=== PATIENT | male | born 1995 | race Hispanic/Latino ===

== ENCOUNTER 2023-11-08 16:54 | Inpatient (IN) | payer SELFPAY ==
[2023-11-08] MEDS ORDERED: ONDANSETRON 4 MG/2 ML VIAL ONE (17:24)
[2023-11-08] MEDS ORDERED: NA CHLORIDE 0.9% 1,000 ML ONE (17:24)
[2023-11-08 17:54] LABS: Albumin 4.7 g/dL (3.4-5.0); Anion Gap 10.9 mEq/L (5.0-15.0); Bilirubin Total 1.6 mg/dL (0.2-1.0); Globulin 4.6 g/dL (2.3-3.5); Potassium 3.9 mEq/L (3.5-5.1); Protein, Total 9.3 g/dL (6.4-8.2)
[2023-11-08 18:01] LABS: Absolute Basophils 0.1 K/uL (0-0.5); Absolute Eosinophils 0.1 K/uL (0-0.5); Absolute Lymphocytes (CBC) 2.6 K/uL (0.7-4.9); Absolute Monocytes 0.8 K/uL (0.1-1.3); Absolute Neutrophil 7.9 K/uL (1.8-8.0); Basophils % 0.7 % (0-1.3); Eosinophils % 0.8 % (0-4.4); Hematocrit 54.6 % (39.6-49.0); Hemoglobin 18.2 g/dL (13.6-17.9); Lymphocytes % 22.8 % (15.3-44.8); MCH 27.5 pg (27.0-35.0); MCHC 33.4 g/dL (32.0-36.0); MCV 82.3 fL (80-100); MPV 8.9 fL (7.6-11.3); Monocytes % 7.2 % (3.3-12.3); Neutrophils % 68.5 % (41.7-73.7); Nucleated RBC Absolute Count 0.5 (0-0); Nucleated Red Blood Cells % 3.9 % (0-0); Platelets 340 thou/uL (152-406); RBC Red Blood Cell Count 6.64 M/uL (4.33-5.43); Red Cell Distribution Width 13.3 % (12.1-15.2)
--- NOTE | 2023-11-08 18:47 | RAD REPORT ---
EXAM DESCRIPTION: CTAbdomen Pelvis W Contrast - 11/08/2023 6:39 pm CLINICAL HISTORY: Abdominal pain. ABD PAIN COMPARISON: No comparisons TECHNIQUE: Biphasic CT imaging of the abdomen and pelvis was performed with 100 ml non-ionic IV cont rast. All CT scans are performed using dose optimization technique as appropriate and may include automated exposure control or mA/KV adjustment according to patient size. FINDINGS: The lung bases are clear. The liver is diffusely fatty. 21 mm lesion in the left lobe anteriorly likely hemangioma. No worrisom e liver lesion. No intra or extrahepatic biliary tree dilatation. Spleen, pancreas, adrenal glands an d kidneys are within normal limits. No bowel obstruction, free air, free fluid or abscess. The tip of the appendix is hazy in appearance and measures 8 mm. This is equivocal for mild/early appendicitis. No evidence of significant lympha denopathy. No suspicious bony findings. IMPRESSION: Tip of the appendix is hazy which is questionable for early appendicitis. Please correla te with right lower quadrant symptomology and appropriate lab studies. 21 mm left hepatic lobe benign hemangioma.
--- NOTE | 2023-11-08 19:04 | ER ---
Nurse's Notes [facility] Name: Riley Naylor Age: 28 yrs Sex: Male : 1995 Arrival Date: 11/08/2023 Time: 16:54 Bed 6 Private MD: Diagnosis: Abdominal pain, possible appendicitis Presentation: 11/07 17:05 Chief complaint: Patient states: Abdominal pain for 12 days, feels worse after eating. ll1 No fevers. Slight nausea. Coronavirus screen: Client denies travel out of the [place] in the last 14 days. At this time, the client does not indicate any symptoms associated with coronavirus-19. Ebola Screen: Patient denies travel to an Ebola-affected area in the 21 days before illness onset. Initial Sepsis Screen: Does the patient meet any 2 criteria? No. Patient's initial sepsis screen is negative. Does the patient have a suspected source of infection? No. Patient's initial sepsis screen is negative. Risk Assessment: Do you want to hurt yourself or someone else? Patient reports no desire to harm self or others. Onset of symptoms was October 27, 2023. 17:05 Method Of Arrival: Ambulatory ll1 17:05 Acuity: CATALINO 3 ll1 Triage Assessment: 17:07 General: Appears uncomfortable, Behavior is calm, cooperative, appropriate for age. ll1 Pain: Complains of pain in abdomen Pain currently is 5 out of 10 on a pain scale. Quality of pain is described as aching, crampy. Neuro: No deficits noted. Cardiovascular: No deficits noted. GI: Reports lower abdominal pain, upper abdominal pain, nausea. Historical: - Allergies: 17:04 PENICILLINS; ll1 - Home Meds: 17:04 None [Active]; ll1 - PMHx: 17:04 None; ll1 - PSHx: 17:04 None; ll1 - Immunization history:: Adult Immunizations up to date. - Social history:: Smoking status: Patient denies any tobacco usage or history of. Screenin:46 [facility] ED Fall Risk Assessment (Adult) History of falling in the last 3 months, ko1 including since admission No falls in past 3 months (0 pts) Confusion or Disorientation No (0 pts) Intoxicated or Sedated No (0 pts) Impaired Gait No (0 pts) Mobility Assist Device Used No (0 pt) Altered Elimination No (0 pt) Score/Fall Risk Level 0 - 2 = Low Risk Oriented to surroundings, Maintained a safe environment, Educated pt \\T\\ family on fall prevention, incl call for assistance when getting out of bed, Assessed \\T\\ reinforced patient's understanding of fall precautions, Provided non-skid footwear, Hourly rounding (assess needs \\T\\ fall precautionary measures) done, Used ambulatory aids as needed (educated on \\T\\ assisted with), Used gait belt as appropriate. Abuse screen: Denies threats or abuse. Denies injuries from another. Nutritional screening: No deficits noted. Tuberculosis screening: No symptoms or risk factors identified. Assessment: 17:46 General: Appears in no apparent distress. Behavior is calm, cooperative, appropriate ko1 for age. Pain: Complains of pain in abdomen. Neuro: No deficits noted. Cardiovascular: No deficits noted. Respiratory: No deficits noted. GI: Reports upper abdominal pain, nausea. : No deficits noted. EENT: No deficits noted. Derm: No deficits noted. Musculoskeletal: No deficits noted. 19:09 Reassessment: Patient appears in no apparent distress at this time. Patient and/or bm8 family updated on plan of care and expected duration. Pain level reassessed. Patient is alert, oriented x 3, equal unlabored respirations, skin warm/dry/pink. Patient states feeling better. Patient states symptoms have improved. received report from lona Prieto. assuming care of pt at this time.. General: Appears in no apparent distress. comfortable, Behavior is calm, cooperative, appropriate for age. Pain: Complains of pain in umbilical area Pain does not radiate. Pain currently is 1 out of 10 on a pain scale. Quality of pain is described as "uncomfortable" Pain began 2-3 days ago. Is continuous, Alleviated by medications. Neuro: No deficits noted. Level of Consciousness is awake, alert, obeys commands, Oriented to person, place, time, Manager Relationship are equal bilaterally Moves all extremities. Full function Gait is steady. Cardiovascular: No deficits noted. Capillary refill < 3 seconds Patient's skin is warm and dry. Respiratory: No deficits noted. Airway is patent Respiratory effort is even, unlabored, Respiratory pattern is regular, symmetrical. GI: Abdomen is flat, Bowel sounds present X 4 quads. Abd is soft Abdomen is tender to palpation in umbilical area and suprapubic area Abdomen has rebound tenderness. : No deficits noted. No signs and/or symptoms were reported regarding the genitourinary system. EENT: No deficits noted. No signs and/or symptoms were reported regarding the EENT system. Derm: No deficits noted. No signs and/or symptoms reported regarding the dermatologic system. Musculoskeletal: No deficits noted. No signs and/or symptoms reported regarding the musculoskeletal system. 20:49 Reassessment: Patient appears in no apparent distress at this time. No changes from bm8 previously documented assessment. Patient and/or family updated on plan of care and expected duration. Pain level reassessed. Patient is alert, oriented x 3, equal unlabored respirations, skin warm/dry/pink. Vital Signs: 17:05 BP 146 / 84; Pulse 100; Resp 18; Temp 97.8; Pulse Ox 100% ; Weight 79 kg; Height 6 ft. ll1 3 in. ; Pain 5/10; 17:46 BP 121 / 85; Pulse 74; Resp 15; Pulse Ox 98% ; ko1 18:36 BP 114 / 77; Pulse 71; Resp 15; Pulse Ox 99% ; ko1 19:09 BP 127 / 84; Pulse 74; Resp 18; Temp 97.8; Pulse Ox 100% on R/A; Pain 1/10; bm8 20:44 BP 121 / 80; Pulse 70; Resp 17; Temp 97.8; Pulse Ox 100% on R/A; Pain 1/10; bm8 17:05 Body Mass Index 21.77 (79.00 kg, 190.5 cm) ll1 17:05 Pain Scale: Adult ll1 19:09 Pain Scale: Adult bm8 20:44 Pain Scale: Adult bm8 ED Course: 16:57 Patient arrived in ED. ae5 16:58 Chris Ta MD is Attending Physician. sp3 17:04 Arm band placed on. ll1 17:06 Triage completed. ll1 17:12 Patient placed in an exam room, on a stretcher. hb 17:17 Sylwia Sherwood, LONA is Primary Nurse. ko1 17:46 Patient has correct armband on for positive identification. Allergy band placed. Bed in ko1 low position. Call light in reach. Side rails up X 1. Client placed on continuous cardiac and pulse oximetry monitoring. NIBP monitoring applied. child life therapist on. Door closed. Noise minimized. Lights dimmed. Warm blanket given. 17:46 No provider procedures requiring assistance completed. Inserted saline lock: 20 gauge ko1 in right antecubital area, using aseptic technique. Blood collected. 18:41 CT Abd/Pelvis - IV Contrast Only In Process Unspecified. EDMS 19:03 Nanci Lopez MD is Hospitalizing Provider. sp3 19:09 Pulse ox on. NIBP on. Door closed. Noise minimized. Lights dimmed. Warm blanket given. bm8 19:09 Urine collected: clean catch specimen, clear. Patient maintains SpO2 saturation greater bm8 than 95% on room air. 20:07 Primary Nurse role handed off by Sylwia Sherwood RN 20:44 Raffi Berry RN is Primary Nurse. bm8 20:49 Provided Education on: NEED FOR ADMISSION. bm8 20:49 Patient admitted, IV remains in place. bm8 Administered Medications: 17:32 Drug: NS 0.9% IV 1000 ml IV at 1 bolus Per protocol; 1000 mL bolus Route: IV; Rate: 1 ko1 bolus; Site: right antecubital; 19:28 Follow up: IV Status: Completed infusion; IV Intake: 1000ml bm8 17:32 Drug: Ondansetron IVP 4 mg IVP once; over 2 minutes Route: IVP; Site: right antecubital;ko1 21:11 Follow up: Response: No adverse reaction bm8 Medication: 17:46 VIS not applicable for this client. ko1 Intake: 19:28 IV: 1000ml; Total: 1000ml. bm8 Outcome: 19:03 Decision to Hospitalize by Provider. sp3 20:49 Admitted to Tele accompanied by nurse, via wheelchair, room 423, with chart, Report bm8 called to LONA RIDDLE 20:49 Condition: stable 20:49 Instructed on the need for admit, 21:32 Patient left the ED. bm8 Signatures: Dispatcher [employer] EDMD Karine Garvey, Ju Falcon RN, RN RN ll1 Ela Pillai Setul, MD MD sp3 Sylwia Sherwood RN RN ko1 Kassie Bassett ae5 Raffi Berry, RN RN bm8 Corrections: (The following items were deleted from the chart) 17:07 17:05 BP 146 / 84; Pulse 100bpm; Resp 18bpm; Pulse Ox 100%; Temp 97.8F; Height 6 ft. 3 ll1 in.; Pain 5/10, Adult; ll1
--- NOTE | 2023-11-08 19:04 | EDPHYS ---
Physician Documentation [facility] Name: Riley Naylor Age: 28 yrs Sex: Male : 1995 Arrival Date: 11/08/2023 Time: 16:54 Bed 6 Private MD: ED Physician Chris Ta HPI: 11/07 17:25 This 28 yrs old Male presents to ER via Ambulatory with complaints of Stomach sp3 Pain. 17:25 28-year-old male with no past medical history and no past surgical history presents sp3 with diffuse abdominal pain crampy in nature that has been going on for approximately 12 days. He states that 12 days ago he went out and had a "a few drinks" and subsequent to that had a hangover episode and vomiting x 1 and since then he has had crampy abdominal pain. He denies ongoing vomiting or any diarrhea whatsoever. On review of systems he also denies headache, URI symptoms, chest pain, shortness of breath, back pain, flank pain, symptoms, rash, syncope, near syncope, bleeding, known sick contacts, travel history, prolonged immobilization, or any other signs or symptoms on ROS at this time.. Historical: - Allergies: 17:04 PENICILLINS; ll1 - Home Meds: 17:04 None [Active]; ll1 - PMHx: 17:04 None; ll1 - PSHx: 17:04 None; ll1 - Immunization history:: Adult Immunizations up to date. - Social history:: Smoking status: Patient denies any tobacco usage or history of. ROS: 17:26 Constitutional: Negative for fever, chills, and weight loss, Eyes: Negative for injury, sp3 pain, redness, and discharge, ENT: Negative for injury, pain, and discharge, Neck: Negative for injury, pain, and swelling, Cardiovascular: Negative for chest pain, palpitations, and edema, Respiratory: Negative for shortness of breath, cough, wheezing, and pleuritic chest pain, Back: Negative for injury and pain, MS/Extremity: Negative for injury and deformity, Skin: Negative for injury, rash, and discoloration, Neuro: Negative for headache, weakness, numbness, tingling, and seizure, Psych: Negative for depression, anxiety, suicide ideation, homicidal ideation, and hallucinations, Allergy/Immunology: Negative for hives, rash, and allergies, Endocrine: Negative for neck swelling, polydipsia, polyuria, polyphagia, and marked weight changes, 17:26 All other systems are negative, Exam: 17:26 Constitutional: This is a well developed, well nourished patient who is awake, alert, sp3 and in no acute distress. Head/Face: Normocephalic, atraumatic. Eyes: Pupils equal round and reactive to light, extra-ocular motions intact. Lids and lashes normal. Conjunctiva and sclera are non-icteric and not injected. Cornea within normal limits. Periorbital areas with no swelling, redness, or edema. Neck: Trachea midline, no thyromegaly or masses palpated, and no cervical lymphadenopathy. Supple, full range of motion without nuchal rigidity, or vertebral point tenderness. No Meningismus. Chest/axilla: Normal chest wall appearance and motion. Nontender with no deformity. No lesions are appreciated. Cardiovascular: Regular rate and rhythm with a normal S1 and S2. No gallops, murmurs, or rubs. Normal PMI, no JVD. No pulse deficits. Respiratory: Lungs have equal breath sounds bilaterally, clear to auscultation and percussion. No rales, rhonchi or wheezes noted. No increased work of breathing, no retractions or nasal flaring. Back: No spinal tenderness. No costovertebral tenderness. Full range of motion. Skin: Warm, dry with normal turgor. Normal color with no rashes, no lesions, and no evidence of cellulitis. MS/ Extremity: Pulses equal, no cyanosis. Neurovascular intact. Full, normal range of motion. Neuro: Awake and alert, GCS 15, oriented to person, place, time, and situation. Cranial nerves II-XII grossly intact. Motor strength 5/5 in all extremities. Sensory grossly intact. Cerebellar exam normal. Normal gait. Psych: Awake, alert, with orientation to person, place and time. Behavior, mood, and affect are within normal limits. 17:26 Abdomen/GI: Crampy abdominal pain to palpation diffuse. No peritoneal signs, rebound or guarding. Nonsurgical abdomen., Vital Signs: 17:05 BP 146 / 84; Pulse 100; Resp 18; Temp 97.8; Pulse Ox 100% ; Weight 79 kg; Height 6 ft. ll1 3 in. ; Pain 5/10; 17:46 BP 121 / 85; Pulse 74; Resp 15; Pulse Ox 98% ; ko1 18:36 BP 114 / 77; Pulse 71; Resp 15; Pulse Ox 99% ; ko1 19:09 BP 127 / 84; Pulse 74; Resp 18; Temp 97.8; Pulse Ox 100% on R/A; Pain 1/10; bm8 20:44 BP 121 / 80; Pulse 70; Resp 17; Temp 97.8; Pulse Ox 100% on R/A; Pain 1/10; bm8 17:05 Body Mass Index 21.77 (79.00 kg, 190.5 cm) ll1 17:05 Pain Scale: Adult ll1 19:09 Pain Scale: Adult bm8 20:44 Pain Scale: Adult bm8 MDM: 17:10 Patient medically screened. sp3 17:27 Data reviewed: vital signs, nurses notes, lab test result(s), radiologic studies. ED sp3 course: 28-year-old male with diffuse abdominal pain. Differential diagnosis includes gastritis, colitis, biliary pathology, appendicitis, functional abdominal pain, constipation, among others. I am not highly suspicious for vascular pathology including aorta, pathology, musculoskeletal pathology, sepsis, shock, ischemia, or any other critical pathology at this time. Workup will include CT scan of the abdomen pelvis, laboratory values, urine analysis and treatment will include IV fluids and ondansetron IV with further pain medications layered on as indicated/needed. Disposition pending workup and patient course with discharge home if workup is negative.. 19:02 ED course: Discussed with Dr. Andre who states to keep him n.p.o. and we will sp3 observe him for serial abdominal exams and potential reimaging in the morning. I will start IV fluids as well given some hemoconcentration on his CBC. I discussed with Dr. Lopez with the hospitalist service as well who will be admitting him under his service. No antibiotics for now.. 11/07 17:22 Order name: CBC with Diff; Complete Time: 19:33 sp3 11/07 17:22 Order name: CMP; Complete Time: 18:52 sp3 11/07 17:22 Order name: Lipase; Complete Time: 18:52 sp3 11/07 17:22 Order name: Urinalysis w/ reflexes; Complete Time: 19:33 sp3 11/07 17:22 Order name: UDS; Complete Time: 19:33 sp3 11/07 19:30 Order name: CBC Smear Scan; Complete Time: 19:33 EDMS 11/07 20:13 Order name: CBC with Automated Diff EDMS 11/07 20:13 Order name: CBC with Automated Diff EDMS 11/07 20:13 Order name: Comprehensive Metabolic Panel EDMS 11/07 20:13 Order name: Comprehensive Metabolic Panel EDMS 11/07 20:13 Order name: Protime (+INR) EDMS 11/07 20:13 Order name: Protime (+INR) EDMS 11/07 20:13 Order name: PTT, Activated Partial Thromb EDMS 11/07 20:13 Order name: PTT, Activated Partial Thromb EDMS 11/07 17:22 Order name: CT Abd/Pelvis - IV Contrast Only; Complete Time: 18:52 sp3 11/07 20:13 Order name: CONS Physician Consult EDMS 11/07 17:22 Order name: IV Saline Lock; Complete Time: 17:22 sp3 11/07 17:22 Order name: Labs collected and sent; Complete Time: 17:22 sp3 Administered Medications: 17:32 Drug: NS 0.9% IV 1000 ml IV at 1 bolus Per protocol; 1000 mL bolus Route: IV; Rate: 1 ko1 bolus; Site: right antecubital; 19:28 Follow up: IV Status: Completed infusion; IV Intake: 1000ml 8 17:32 Drug: Ondansetron IVP 4 mg IVP once; over 2 minutes Route: IVP; Site: right antecubital;ko1 21:11 Follow up: Response: No adverse reaction bm8 Disposition Summary: 11/08/23 19:03 Hospitalization Ordered Notes: Hospitalization Status: Observation sp3 Provider: Nanci Lopez sp3 Location: Telemetry/MedSurg (observation) sp3 Condition: Stable sp3 Problem: new sp3 Symptoms: have worsened sp3 Bed/Room Type: Standard sp3 Room Assignment: [facility](11/08/23 20:35) wm Diagnosis - Abdominal pain, possible appendicitis sp3 Forms: - Medication Reconciliation Form sp3 - SBAR form sp3 - Leadership Thank You Letter sp3 Signatures: Dispatcher [employer] Ju Gong RN RN ll1 Ela Pillai Setul, MD MD sp3 Sylwia Sherwood RN RN ko1 Raffi Berry RN bm8 Corrections: (The following items were deleted from the chart) 20:35 19:03 augustina cabrera
[2023-11-08 19:25] LABS: Sqamous Epithelial <5 /HPF (None Seen); Urine Bacteria <20 /HPF (<20); Urine Bilirubin NEGATIVE (Negative); Urine Blood Negative (Negative); Urine Clarity Clear (Clear); Urine Color Light-Yellow (Yellow); Urine Culture Reflex Order NOT NEEDED; Urine Glucose NEGATIVE (Negative); Urine Ketones 2+ (Negative); Urine Microscopic Reflex YN ORDER UMIC; Urine Mucus 4+ /HPF (None Seen); Urine Nitrite NEGATIVE (Negative); Urine Protein 1+ (Negative); Urine RBC <5 /HPF (None Seen); Urine Urobilinogen Normal (Normal); Urine WBC <5 /HPF (<5); Urine pH 5.5 (5.0-7.0)
[2023-11-08 19:26] LABS: Specific Gravity > 1.030 (1.005-1.030)
[2023-11-08 19:29] LABS: Platelet Estimate ADEQ; White Blood Cell Scan OK (OK)
[2023-11-08 19:30] LABS: Blood Morphology Comment NOT SEEN (NOT SEEN)
[2023-11-08 19:30] LABS: Barbiturates NEGATIVE (NEGATIVE); Benzodiazepines NEGATIVE (NEGATIVE); Cocaine NEGATIVE (NEGATIVE); METHAMPHETAM NEGATIVE (NEGATIVE); Methadone NEGATIVE (NEGATIVE); Opiates NEGATIVE (NEGATIVE); Phencyclidine NEGATIVE (NEGATIVE); THC Cannibis POSITIVE (NEGATIVE)
[2023-11-08] MEDS ORDERED: ACETAMINOPHEN 500 MG TAB PO PRN (20:09)
[2023-11-08] MEDS ORDERED: ONDANSETRON 4 MG/2 ML VIAL IV PRN (20:09)
--- NOTE | 2023-11-08 20:18 | P.HP ---
Certification for Inpatient Patient admitted to: Observation With expected LOS: <2 Midnights Patient will require the following post-hospital care: None Practitioner: I am a practitioner with admitting privileges, knowledge of patient current condition, hospital course, and medical plan of care. Services: Services provided to patient in accordance with Admission requirements found in Title 42 Section 412.3 of the Code of Federal Regulations Patient History Date of Service: 11/08/23 Reason for admission: Abdominal pain History of Present Illness: Patient is a 28-year-old gentleman came to the hospital with abdominal pain. Pain was very vague and he had some nausea associated with it. Patient states has been dealing with this for about 11 days. He is really not eating well because of the pain that he feels. He gets nauseated as well. Patient otherwise no other complaints. He is asked to do with some issues at work that he has been dealing with for the last couple of years. He does appear to be a little upset when he talks about this. - Past Medical/Surgical History Past Medical History: Patient denies medical history Past Surgical History: Patient denies surgical history - Family History Father Family History: Reviewed- Non-Contributory - Social History Smoking Status: Current every day smoker Alcohol use: No CD- Drugs: Yes Review of Systems 10-point ROS is otherwise unremarkable Physical Examination - Vital Signs Temperature: 98 F Blood Pressure: 130/80 Pulse: 80 Respirations: 18 Pulse Ox (%): 98 - Physical Exam General: Alert, In no apparent distress, Oriented x3 HEENT: Atraumatic, PERRLA, Mucous membr. moist/pink, EOMI, Sclerae nonicteric Neck: Supple, 2+ carotid pulse no bruit, No LAD, Without JVD or thyroid abnormality Respiratory: Clear to auscultation bilaterally, Normal air movement Cardiovascular: Regular rate/rhythm, Normal S1 S2 Gastrointestinal: Normal bowel sounds, Soft and benign, Non-distended, No tenderness Musculoskeletal: No tenderness Integumentary: No rashes Neurological: Normal gait, Normal speech, Normal strength at 5/5 x4 extr, Normal tone, Sensation intact, Cranial nerves 3-12 intact, Normal affect Lymphatics: No axilla or inguinal lymphadenopathy - Studies Laboratory Data (last 24 hrs) 11/08/23 11/08/23 17:31 17:31 WBC 11.50 H Hgb 18.2 H Hct 54.6 H Plt Count 340 Sodium 138 Potassium 3.9 BUN 26 H Creatinine 1.29 Glucose 98 Total Bilirubin 1.6 H AST 37 ALT 63 H Alkaline Phosphatase 95 Lipase 34 Assessment & Plan - Problems (Diagnosis) (1) Abdominal pain Current Visit: Yes Status: Acute - Plan PLAN: -IV antibiotics -IV fluids -CBC, CMP, lipase -N.p.o. -Repeat abdominal film -Antiemetics Discharge Plan: Home Plan to discharge in: Greater than 2 days - Advance Directives Does patient have a Living Will: No Does patient have a Durable POA for Healthcare: No - Code Status/Comfort Care Code Status Assessed: Yes Code Status: Full Code Critical Care: No Time Spent Managing PTS Care (In Minutes): 45
[2023-11-08] MEDS: NA CHLORIDE 0.9% 1,000 ML IV SCH (22:00)
[2023-11-08] MEDS: MORPHINE 2 MG/ML SYR IV PRN (22:18)
[2023-11-08 23:46] VITALS: BMI 21.9
[2023-11-09] MEDS: PIPER TAZO 3.375 GM in NA CHLORIDE 0.9% 100 ML IV SCH (01:00)
[2023-11-09] MEDS: Levofloxacin500mg IV 500 MG/100 ML BAG IV SCH (02:08)
[2023-11-09 05:40] LABS: PT Prothrombin Time 13.8 SECONDS (9.5-12.5); PTT, Activated Partial Thromb 34.7 SECONDS (24.3-36.9); Protime INR 1.26
[2023-11-09 05:48] LABS: Anion Gap 11.1 mEq/L (5.0-15.0); Bilirubin Total 1.7 mg/dL (0.2-1.0); Potassium 4.1 mEq/L (3.5-5.1)
[2023-11-09 05:54] LABS: Absolute Basophils 0.1 K/uL (0-0.5); Absolute Eosinophils 0.2 K/uL (0-0.5); Absolute Lymphocytes (CBC) 2.8 K/uL (0.7-4.9); Absolute Monocytes 0.7 K/uL (0.1-1.3); Absolute Neutrophil 7.8 K/uL (1.8-8.0); Basophils % 0.7 % (0-1.3); Eosinophils % 1.4 % (0-4.4); Hematocrit 50.5 % (39.6-49.0); Hemoglobin 16.8 g/dL (13.6-17.9); Lymphocytes % 24.5 % (15.3-44.8); MCH 27.5 pg (27.0-35.0); MCHC 33.3 g/dL (32.0-36.0); MCV 82.6 fL (80-100); MPV 9.2 fL (7.6-11.3); Monocytes % 6.4 % (3.3-12.3); Nucleated Red Blood Cells % 0.2 % (0-0); Platelets 337 thou/uL (152-406); RBC Red Blood Cell Count 6.11 M/uL (4.33-5.43); Red Cell Distribution Width 13.4 % (12.1-15.2)
--- NOTE | 2023-11-09 06:41 | CON ---
Date of Consultation: 11/08/2023 Reason For Service: Abdominal pain of unknown origin with abnormal appendix on CT scan. History Of Present Illness: This is the case of a 28-year-old patient. He ago he went ou t with some friends, had some drinks, then after that he developed a pain that has been there for 11 days, not getting better. Sometimes alleviate a little bit and then when he eat once agai n gets nauseous again. He does not recall any dysuria, hematuria, hematochezia, melena. Denies any recent traveling out of the country. Denies any family or friends sick at home. The friends who hemanth t with him at that place, they are perfectly fine with no abdominal pain. He tried multiple remedies trying to see if that was a gastric ulcer or some gastroenteritis or a virus. The mom has been ____ some home remedies, but it has not improved. He has no centrifugal machine tender and no previous col onoscopies. Past Medical History: None. Surgical History: None. Family History: Noncontributory. Social History: He smokes. He was advised the importance of smoking cessation. He does not drink a lcohol, except for the event that we just mentioned. Review of Systems: Nausea, vomiting, and abdominal pain. Ten points are otherwise unremarkable. No dysuria, hematuria, hematochezia, or melena. Physical Examination: General: The patient is awake and alert. HEENT: Pupils are equal and reactive. Anicteric. Neck: Supple. Chest: Clear. Heart: S1, S2. Abdomen: Generalized tenderness. There is some periumbilical tenderness too. There is no Rovsing s ign. Some Irvin signs, some psoas signs, but condenser tube tender in the periumbilical region. Neurologic: Oriented x3. Laboratory Data: Blood work shows WBC count of 11.5 with hemoglobin of 18.2 and platelets of 340. S odium is 138, creatinine is 1.29, total bilirubin of 1.6, lipase is 34. UA: Nitrite negative. CAT scan of the abdomen and pelvis interpreted by Dr. Topete as tip of the appendix is hazy, questionable f or early appendicitis. Assessment: This is a 28-year-old patient admitted overnight with abdominal pain; even though it has been 11 days, it is moving more to the periumbilical region and now the CAT scan shows possible appe ndicitis with a leukocytosis. The etiology of that is not completely clear, but at if thi s continues and he does not improve, we will offer him diagnostic lap, possible appendectomy with charissa efits, alternatives, and risks including, but not limited to infection, bleeding, damage to adjacent structures, anesthesia complication, negative appendix, [place], and even . He also understands this may not relieve symptoms. He might need more than one surgical intervention. He is thinking with h is mom tonight, and by the morning, he is going to have a decision. CECI/WAQAR Voice ID: [id number] Report ID: [id number]
[2023-11-09] MEDS: METRONIDAZOLE 500mg IVPB 500 MG/100 ML BAG IV SCH (08:33)
--- NOTE | 2023-11-09 10:27 | P.PN ---
Date of Service: 11/09/23 Subjective: abdominal discomfort persists but improved compared to yesterday - with pain medication abd pain more tolerable, not needing as frequent pain medication tentative plan for surgery today afebrile ROS: 10 point ROS as noted above, otherwise negative Physical Exam: GEN: Alert, oriented, NAD HEENT: Normal conjunctiva, sclera anicteric CV: Regular rate and rhythm, no edema Pulm: Nonlabored respirations on room air, clear bilaterally ABD: soft, mild-mod periumbilical tenderness, nondistended Neuro: Normal speech, normal affect Problem List: suspected acute appendicitis Abdominal pain Reports ongoing abdominal discomfort, nausea for ~1-2 weeks worsened with eating. Denies any bleeding. Has never had colonoscopy before. CT abd/pelvis (11/07): questionable appendicitis, 21mm left hepatic lobe benign hemangioma Dr. Andre, general surgery consulted NPO for possible diagnostic lap / possible lap appendectomy today continue empiric levaquin / flagyl (11/08-) PRN analgesics / antiemetics continue IV fluids lipase okay Code: Full Dispo: Home, ~1 day Pending surgery / recovery
[2023-11-09] MEDS: Ringers Lactate 1,000 ML IV ONE (11:42)
[2023-11-09] MEDS ORDERED: LIDOCAINE 2% MPF 5 ML VIAL ONE (12:34)
[2023-11-09] MEDS ORDERED: ONDANSETRON 4 MG/2 ML VIAL ONE (12:34)
[2023-11-09] MEDS ORDERED: ROCURONIUM 50 MG/5 ML VIAL IV ONE (12:34)
[2023-11-09] MEDS ORDERED: propofoL 200 MG/20 ML VIAL IV ONE (12:34)
[2023-11-09] MEDS ORDERED: FENTANYL CITR 100 MCG/2 ML ONE ×2 (12:35→13:15)
[2023-11-09] MEDS ORDERED: MIDAZOLAM HCL 2 MG/2 ML INJ ONE (12:35)
[2023-11-09] MEDS ORDERED: dexAMETHasone 10 MG/ML VIAL ONE (12:57)
[2023-11-09] MEDS ORDERED: GLYCOPYRROLATE 0.2 MG/ML SYR ONE ×2 (13:12→13:28)
[2023-11-09] MEDS ORDERED: KETOROLAC 30 MG/ML INJ ONE (13:28)
[2023-11-09] MEDS ORDERED: NEOSTIGMINE 1 MG/ML -10 ML VIAL ONE (13:28)
--- NOTE | 2023-11-09 13:47 | P.BOP ---
Preoperative diagnosis: abdominal pain, appendicitis Postoperative diagnosis: same Primary procedure: Diagnostic laparoscopy, laparoscopic appendectomy Estimated blood loss: <10cc Specimen: artemio Findings: as above. Mild enteritis Anesthesia: General Complications: None Transferred to: Recovery Room Condition: Good
[2023-11-09] MEDS: MEPERIDINE HCL 25 MG/ML SYR ONE (14:14)
[2023-11-09] MEDS: HYDROMORPHONE HCL 1 MG/ML INJ ONE (14:29)
[2023-11-09 15:02] VITALS: O2SAT 99
[2023-11-09] MEDS: CIPROFLOXACIN 400mg IV 400 MG/200 ML BAG IV SCH (20:09)
[2023-11-10] MEDS: ALPRAZOLAM 0.5 MG TABLET PO ONE (00:32)
--- NOTE | 2023-11-10 02:54 | OP ---
Date of Procedure: 11/09/2023 Surgeon: Nabil Andre MD Diagnoses: Abdominal pain, acute appendicitis. Postoperative Diagnoses: Abdominal pain, acute appendicitis. Procedures: Diagnostic laparoscopy, laparoscopic appendectomy. Specimen: Appendix. Findings: The patient has distended, dilated erythematous appendix in the distal half of the appendi x. We also noticed some bowel loops, small-bowel hyperactive with some mild erythema. I am not sure exactly have any significant in this case, but coming from somebody that he may have william roenteritis as the initial problem, I am not surprised. The transverse colon, ascending, and descend ing colon looked intact. The area of the stomach and liver area looked intact and pelvis looked inta ct. Anesthesia: General plus local. Indications: This is a case of a 28-year-old patient, developed abdominal pain for a little more jacque n a week, also leukocytosis, nothing got better. Nausea, vomiting, cannot keep anything down. He chappell s workup when he came to this hospital, trying to find out the etiology of that and it is still unkno wn. This morning, he has still leukocytosis. The CAT scan shows early appendicitis. I explained to them that even though shows early appendicitis, it is hard to see what triggered this. So, if this happened 11 days ago after he ate, he may have some gastrointestinal inflammation that may be causing not only inflammation of the small bowel, but also the appendix and although we are going to go the most likely to remove the appendix because this is abnormal, I still encouraged him to see his gastro enterologist as an outpatient to make sure we do not have inflammatory bowel disease component. He u nderstood. The mother was at bedside. We explained to them last night, this morning again, and they made the decision to go for diagnostic lap and the appendectomy. The benefits, alternatives, and ri sks fully explained, which include, but not limited to infection, bleeding, damage to adjacent struct ures, anesthesia complication, negative appendix, DC, and even . He also understands this may n ot relieve symptoms, he might need more than one surgical intervention. He understood, signed a cons ent. Description Of Procedure: Patient was brought to the operating room, placed in supine position. Ane sthesia was done without complication. Abdominal area was prepped and draped in usual sterile fashio n. Local anesthesia was applied followed by sharp incision of the skin in the infraumbilical region. Incision was carried down to fascia, which was opened under direct vision. Peritoneum was encounte red, opened under direct vision. Vicryl #1 placed inside the fascia. Tavia trocar was carefully in troduced. Pneumoperitoneum was obtained. I placed 2 more trocars, 5 mm each one of them, 1 in the s uprapubic area, another 1 in the left lower quadrant using same technique which consisted of local an esthetic, sharp incision of the skin, and introduction of the trocars under direct vision. This allo wed me to do the diagnostic lap with the findings discussed above. Once we decided the appendix is a bnormal, we created a window in the base of the appendix, transected that with an Endo-GENE 45 mm nonv ascular and then via mesoappendix with the Endo-GENE 45 mm vascular, and then further hemostasis was o btained with the help of hemoclips, 5 mm, and the appendix removed from abdominal cavity using EndoCa tch through the umbilical incision. At that moment, I inspected the area once again. No bowel leak. No bleeding. Irrigation was done and suction was done. We did not see any other abnormalities or any lymphadenopathies or hernias. At that moment, the small bowel also was visualized from the ligam ent of [place] all the way down to the terminal ileum with the findings discussed above, mainly in the last part of the intestines, but no ischemia or evidence of a stenosis or dilatation. At that momen t, I proceeded to remove the trocars under direct vision, deflated pneumoperitoneum, closed the fasci a with 1 Vicryl. Irrigated subcutaneous tissue, closed that with 3-0 chromic and the skin in a subcu ticular closure with 3-0 chromic, and Steri-Strips on top. Sponge count, instrument counts correct. Patient tolerated the procedure well. Patient was sent to recovery in stable condition. CECI/MODL Voice ID: [id number] Report ID: [id number]
[2023-11-10 03:22] LABS: Absolute Lymphocytes (CBC) 1.7 K/uL (0.7-4.9); Absolute Monocytes 0.6 K/uL (0.1-1.3); Absolute Neutrophil 9.1 K/uL (1.8-8.0); Basophils % 0.3 % (0-1.3); Hematocrit 45.1 % (39.6-49.0); Lymphocytes % 14.9 % (15.3-44.8); MCH 27.6 pg (27.0-35.0); MCHC 33.2 g/dL (32.0-36.0); MCV 83.1 fL (80-100); MPV 9.3 fL (7.6-11.3); Monocytes % 5.4 % (3.3-12.3); Neutrophils % 79.4 % (41.7-73.7); Platelets 261 thou/uL (152-406); RBC Red Blood Cell Count 5.43 M/uL (4.33-5.43); Red Cell Distribution Width 13.5 % (12.1-15.2)
[2023-11-10 03:28] LABS: Anion Gap 12.2 mEq/L (5.0-15.0); Potassium 4.2 mEq/L (3.5-5.1)
[2023-11-10 03:29] LABS: Magnesium 1.9 mg/dL (1.6-2.4)
[2023-11-10] MEDS ORDERED: CODEINE 30MG/APAP 300MG TAB PO PRN (06:52)
--- NOTE | 2023-11-10 11:52 | P.PN ---
Date of Service: 11/10/23 Subjective: reports penile pain and burning sensation when urinating overnight improved this morning. urinating now without issues abdominal discomfort improving no BM yet; +flatus afebrile ROS: 10 point ROS as noted above, otherwise negative Physical Exam: GEN: Alert, oriented, NAD HEENT: Normal conjunctiva, sclera anicteric CV: Regular rate and rhythm, no edema Pulm: Nonlabored respirations on room air, clear bilaterally ABD: soft, mild periumbilical tenderness, surgical dressing in place Neuro: Normal speech, normal affect Problem List: acute appendicitis, s/p lap appendectomy (11/08) mild Enteritis CT abd/pelvis (11/07): questionable appendicitis, 21mm left hepatic lobe benign hemangioma Dr. Andre, general surgery consulted s/p lap appendectomy (11/08) for acute appy also found to have mild enteritis during surgery advance to full liquids this evening continue empiric cipro / flagyl (11/08-) leukocytosis ~same last 48 hours PRN analgesics / antiemetics IV fluids dc'd lipase okay Code: Full Dispo: Home, ~1 day Pending tolerating diet without issues / wbc improves
--- NOTE | 2023-11-10 14:29 | PN ---
Date of Progress Note: 11/08/2023 Diagnoses: Abdominal pain; acute appendicitis, status post appendectomy. Subjective: The patient is doing better. No vomiting today. Objective: Chest: Clear. Abdomen: Soft and depressible. Incisions are intact. Extremities: Good capillary refill. No calf tenderness. Laboratory Data: White count is 11. Plan: Advance diet slowly. Continue antibiotics. If he tolerates diet and continues, then may be d ischarged home tomorrow. CECI/WAQAR Voice ID: [id number] Report ID: [id number]
[2023-11-11 08:45] LABS: Absolute Basophils 0.1 K/uL (0-0.5); Absolute Eosinophils 0.1 K/uL (0-0.5); Absolute Lymphocytes (CBC) 2.1 K/uL (0.7-4.9); Absolute Monocytes 0.7 K/uL (0.1-1.3); Absolute Neutrophil 8.1 K/uL (1.8-8.0); Basophils % 0.7 % (0-1.3); Eosinophils % 0.9 % (0-4.4); Hematocrit 46.3 % (39.6-49.0); Hemoglobin 15.6 g/dL (13.6-17.9); MCH 27.9 pg (27.0-35.0); MCHC 33.8 g/dL (32.0-36.0); MCV 82.6 fL (80-100); MPV 8.9 fL (7.6-11.3); Monocytes % 6.6 % (3.3-12.3); Neutrophils % 72.8 % (41.7-73.7); Nucleated Red Blood Cells % 0.3 % (0-0); Platelets 260 thou/uL (152-406); Red Cell Distribution Width 13.3 % (12.1-15.2)
--- NOTE | 2023-11-11 09:16 | P.DS ---
Admission Date: 11/10/23 Discharge Date: 11/11/23 Disposition: ROUTINE DISCHARGE Discharge Condition: GOOD Reason for Admission: Abdominal pain Consultations: General Surgery - Dr. Andre Brief History of Present Illness: 28 yo M, PMH: none Patient presented to the hospital with abdominal pain. Pain was very vague and he had some nausea associated with it. Patient states has been dealing with this for about 11 days. He is really not eating well because of the pain that he feels. He gets nauseated as well. Patient otherwise no other complaints. He is asked to do with some issues at work that he has been dealing with for the last couple of years. He does appear to be a little upset when he talks about this. Hospital Course: Problem List: acute appendicitis, s/p lap appendectomy (11/08) mild Enteritis Patient presented to the ED with abdominal pain, nausea. CT on admission with findings concerning for mild early acute appendicitis, also noted 21 mm left hepatic lobe benign hemangioma. Patient was evaluated by Dr. Andre, General surgery, and was taken to the OR for diagnostic lap and lap appendectomy on 11/08. Patient was also found to have mild enteritis and appendicitis during surgery. Patient did well post-operatively, was feeling better, abdominal pain improving, and was deemed stable for discharge. Patient was able to tolerate full liquids without issues. Advised to follow up with Dr. Andre in ~1 week. Can continue full liquid diet for next days if needed and can slowly advance diet as tolerated until back to normal diet. Patient received ~2-3 days of IV cipro / flagyl and is to complete 7 more days of cipro / flagyl for a total of ~10 days of antibiotic treatment Medications: ciprofloxacin and flagyl for 7 more days tylenol #3 as needed for pain Zofran as needed for nausea Follow up: PCP 3-[address] Andre in ~1 week Okay to return to work once cleared by Dr. Andre, general surgeon, at follow up appointment in ~1 week. No heavy lifting > 10 lbs for 4-6 weeks or once cleared by Dr. Andre Physical Exam: GEN: Alert, oriented, NAD HEENT: Normal conjunctiva, sclera anicteric CV: Regular rate and rhythm, no edema Pulm: Nonlabored respirations on room air, clear bilaterally ABD: soft, mild periumbilical tenderness, surgical dressing in place Neuro: Normal speech, normal affect Vital Signs/Physical Exam: Temp Pulse Resp BP Pulse Ox 97.0 F 60 17 109/67 98 11/11/23 04:00 11/11/23 04:00 11/11/23 04:00 11/11/23 04:00 11/11/23 04:00 Laboratory Data at Discharge: WBC 11.20 thou/uL (4.3-10.9) H 11/11/23 08:25 Hgb 15.6 g/dL (13.6-17.9) 11/11/23 08:25 Hct 46.3 % (39.6-49.0) 11/11/23 08:25 Plt Count 260 thou/uL (152-406) 11/11/23 08:25 PT 13.8 SECONDS (9.5-12.5) H 11/09/23 04:56 INR 1.26 11/09/23 04:56 APTT 34.7 SECONDS (24.3-36.9) 11/09/23 04:56 Sodium 136 mEq/L (136-145) 11/10/23 02:36 Potassium 4.2 mEq/L (3.5-5.1) 11/10/23 02:36 BUN 17 mg/dL (7-18) 11/10/23 02:36 Creatinine 0.78 mg/dL (0.70-1.30) 11/10/23 02:36 Glucose 83 mg/dL (74-106) 11/10/23 02:36 Magnesium 1.9 mg/dL (1.6-2.4) 11/10/23 02:36 Total Bilirubin 1.7 mg/dL (0.2-1.0) H 11/09/23 04:56 AST 27 U/L (15-37) 11/09/23 04:56 ALT 55 U/L (16-61) 11/09/23 04:56 Alkaline Phosphatase 82 U/L (45-117) 11/09/23 04:56 Lipase 34 U/L (13-75) 11/08/23 17:31 Home Medications: Ciprofloxacin HCl [Cipro 500 MG Tablet] 500 mg PO BID 7 Days #14 tab 11/11/23 Codeine/APAP [Tylenol W/Codeine #3 tab] 1 tab PO Q6HP PRN #10 tab 11/11/23 Ondansetron [Zofran] 4 mg PO Q6H PRN #10 tab 11/11/23 metroNIDAZOLE [Flagyl] 500 mg PO Q8H 7 Days #21 tab 11/11/23 New Medications: Codeine/APAP [Tylenol W/Codeine #3 tab] 1 tab PO Q6HP PRN #10 tab PRN Reason: Pain Ciprofloxacin HCl [Cipro 500 MG Tablet] 500 mg PO BID 7 Days #14 tab metroNIDAZOLE [Flagyl] 500 mg PO Q8H 7 Days #21 tab Ondansetron [Zofran] 4 mg PO Q6H PRN #10 tab PRN Reason: Nausea / Vomiting Physician Discharge Instructions: Physician Discharge Instructions: Patient presented to the ED with abdominal pain, nausea. CT on admission with findings concerning for mild early acute appendicitis, also noted 21 mm left hepatic lobe benign hemangioma. Patient was evaluated by Dr. Andre, General surgery, and was taken to the OR for diagnostic lap and lap appendectomy on 11/08. Patient was also found to have mild enteritis and appendicitis during surgery. Patient did well post-operatively, was feeling better, abdominal pain improving, and was deemed stable for discharge. Patient was able to tolerate full liquids without issues. Advised to follow up with Dr. Andre in ~1 week. Can continue full liquid diet for next days if needed and can slowly advance diet as tolerated until back to normal diet. Patient received ~2-3 days of IV cipro / flagyl and is to complete 7 more days of cipro / flagyl for a total of ~10 days of antibiotic treatment Medications: ciprofloxacin and flagyl for 7 more days tylenol #3 as needed for pain Zofran as needed for nausea Follow up: PCP 3-[address] Andre in ~1 week Okay to return to work once cleared by Dr. Andre, general surgeon, at follow up appointment in ~1 week. No heavy lifting > 10 lbs for 4-6 weeks or once cleared by Dr. Andre Followup: Nabil Andre MD [ACTIVE - CAN ADMIT] - 1 Week NONE,NONE [Primary Care Provider] - Time spent managing pt's care (in minutes): 45
--- NOTE | 2023-11-11 09:51 | PN ---
Date of Progress Note: 11/11/2023 Diagnoses: Enteritis and appendicitis, status post appendectomy. Subjective: The patient is doing well. Still low appetite. No vomiting. Objective: Chest: Clear. Abdomen: Soft and depressible. Extremities: Good capillary refill. Laboratory Data: Blood work reviewed. Plan: From the surgical standpoint, he can be discharged home on a bland diet. Follow up in my offi ce this week. We advised the importance of seeing his insurance. His lap runner is covered because most likely he is going to need their help. We asked him once again to avoid any alcohol and spicy food, anything out, eat just bland diet. CECI/WAQAR Voice ID: [id number] Report ID: [id number]
[2023-11-11 10:04] VITALS: BP 111/60; TEMP 97.5
== END 2023-11-11 11:10 | disposition home or self-care (01) | DRG 399 ==
LOC: ER 16:54 → ERHOLD 20:09 → 4TH 20:51 → OBSVTOIN 11-10 17:13
PROVIDERS: ADMIT Hospitalist; ATTEND Hospitalist
PROC: 0DTJ4ZZ Resection of Appendix, Percutaneous Endoscopic Approach (ICD-10-PCS; principal; 2023-11-09 15:15)
DX: K35.80 Unspecified acute appendicitis (principal); D18.09 Hemangioma of other sites; K52.9 Noninfective gastroenteritis and colitis, unspecified; F17.200 Nicotine dependence, unspecified, uncomplicated; Z88.0 Allergy status to penicillin; Z79.899 Other long term (current) drug therapy
CPT/HCPCS: 36415; 74177; 80048; 80053; 80307; 81001; 83690; 83735; 85025; 85610; 85730; 88304; 96361; 96374; 99285; G0378; J0744; J1100; J1170; J2001; J2175; J2250; J2270; J2405; J2704; J2710; J3010; J7030; J7120; Q9967